=== PATIENT | female | born 1980 | race Caucasian/White ===

== ENCOUNTER 2021-07-06 19:16 | Emergency (ER) | payer BC ==
[2021-07-06 19:59] LABS: RED BLOOD COUNT 4.47 M/UL (4.00-5.10); WHITE BLOOD COUNT 6.1 K/UL (4.5-11.0)
[2021-07-06 20:31] LABS: BUN/CREATININE RATIO 16 (0-10)
== END 2021-07-06 21:19 | disposition home or self-care (01) ==
LOC: ER1 19:16
PROVIDERS: Physician Assistant
DX: R10.31 Right lower quadrant pain (principal); R50.9 Fever, unspecified
CPT/HCPCS: 80053; 81001; 84703; 85025; 85652; 86140; 87086; 99284; Q9967